=== PATIENT | male | born 1975 | race Caucasian/White ===

== ENCOUNTER 2020-05-13 17:13 | Emergency (ER) | payer SELFPAY ==
[~2020-05-13] VITALS: Ht 182.9 cm; Wt 109.1 kg
[2020-05-13] MEDS ORDERED: CEPHALEXIN MONOHYDRATE 500 MG CAPSULE PO ONE (17:45)
[2020-05-13] MEDS ORDERED: SULFAMETHOX/TRIMETH DS 800-160 MG/TABLET PO ONE (17:45)
[2020-05-13] MEDS ORDERED: TraMADol HCL 50 MG TABLET PO ONE (17:45)
[2020-05-13] MEDS ORDERED: DiphenhydrAMINE HCL 25 MG CAPSULE PO ONE (18:00)
[2020-05-13] MEDS ORDERED: BACITRACIN 0.9 GM PACKET OINTMENT TP ONE (18:00)
[2020-05-13 18:25] VITALS: BP 137/79
== END 2020-05-13 18:35 | disposition home or self-care (01) ==
LOC: EMS 17:13
DX: F17.210 Nicotine dependence, cigarettes, uncomplicated (principal); S50.861A Insect bite (nonvenomous) of right forearm, initial encounter; W57.XXXA Bitten or stung by nonvenomous insect and other nonvenomous arthropods, initial encounter
CPT/HCPCS: Z7502; Z7610